=== PATIENT | female | born 1950 | race Caucasian/White ===

== ENCOUNTER → 2016-11-24 | Outpatient (CLI) | payer MEDICARE, OTHER ==
[~2016-11-24] MED LIST: ADULT LOW DOSE81 MG PO; ADVAIR 10028 PUFF/IN IN; AMLO5TAB PO; CARVEDILOL6.25 M1 PO; CIPROFLOXACIN500 M2 PO; CLARITIN 10MG T10 MG PO; COREG3.125 MG PO; FLONASE 50 MCG16 GM; FOSAMAX70 M1 PO; HYDROXYZINE HCL25 M1 PO; K-DUR 20MEQ TA20 MEQ PO; KEFLEX 500MG.500 MG PO; LASIX 40MG. TAB40 MG PO; MECLIZINE HYDRO25 M2 PO; NORVASC 2.5MG.2.5 MG PO; PREDNISONE 20MG20 MG PO; PRILOSEC20 M1 PO; SPIRIVA HA1 PUFF/INH IH; SPIRONOLACTONE25 MG PO; ZOFRAN ODT4 MG PO
[2016-11-24 12:55] LABS: BUN 16 mg/dL (7-18)
[2016-11-24 12:56] LABS: GFR (ESTIMATED) 32 ML/MIN (59-)
== END ==
LOC: LAB 12:03
PROVIDERS: Internal Medicine
DX: I50.20 Unspecified systolic (congestive) heart failure (principal)